=== PATIENT | female | born 1990 ===

== ENCOUNTER 2019-07-05 08:51 | Outpatient (CLI) | payer OTHER ==
--- NOTE | 2019-07-05 09:30 | ULT ---
EXAM: US Abdominal CLINICAL HISTORY: Epigastric pain.. COMPARISON: None. FINDINGS: Pancreas: The head and proximal pancreatic body have a normal echotexture. The remainder the pancrea s is obscured by bowel gas. IVC: Visualized IVC has a normal caliber. Aorta: Visualized aorta has a normal caliber. Liver:Normal hepatic parenchymal echotexture. No hepatic masses or intrahepatic biliary dilatation. T he contour of the hepatic margin is maintained. Gallbladder: No sonographic evidence of cholelithiasis, gallbladder wall thickening or pericholecysti c fluid. Garcia's sign:Negative. CBD: 0.3 cm common bile duct diameter Portal vein: Patent. Appropriate directional flow. Right kidney: Normal cortical echotexture. There is right renal cortical thinning. No hydronephrosis. Right kidney measuring 11.3 x 3.4 x 4.4 cm. cm in length. Left kidney: Normal cortical echotexture. No hydronephrosis . Left kidney measuring 11.3 x 4.6 x 4.1 cm in length Spleen: 12.8 cm. Normal cortical echotexture. IMPRESSION: 1. No acute abnormality. No evidence of hydronephrosis. 2. No evidence of cholelithiasis or cholecystitis. 3. Right renal cortical thinning.
== END 2019-07-05 08:52 | disposition home or self-care (01) ==
LOC: BICULT 08:51
PROVIDERS: ATTEND Nurse Practitioner Family
DX: K80.50 Calculus of bile duct without cholangitis or cholecystitis without obstruction (principal); N28.89 Other specified disorders of kidney and ureter
CPT/HCPCS: 93975